=== PATIENT | female | born 1960 | race Caucasian/White ===

== ENCOUNTER 2019-12-06 12:59 | Outpatient (CLI) | payer OTHER, SELFPAY ==
--- NOTE | ~2019-12-06 | US_ITS ---
EXAMINATION:US venous doppler LE RT INDICATION:Right lower extremity edema TECHNIQUE: Multiple grayscale, color flow and Doppler images of the right lower extremity deep venous systems were obtained and reviewed. COMPARISON:05/27/2016 FINDINGS: The common femoral, superficial femoral and popliteal veins demonstrate normal respiratory variation, augmentation and compressibility. Color flow is also seen within the posterior tibial, pe roneal, greater saphenous and profunda veins. IMPRESSION: 1: No lower extremity deep venous thrombosis. Reviewed, dictated and finalized at location B. ER MEAT
--- NOTE | ~2019-12-06 | XR_ITS ---
XR chest 2V 12/06/2019 13:22 Indication: Shortness of breath Procedure: 2 view chest Comparison: Comparison to multiple prior studies sequentially, with oldest reviewed study dated 05/20. Findings: Heart size normal. Left basilar atelectasis. No focal air space disease, pulmonary edema, p leural effusion or suspected pneumothorax. Impression: 1: Left basilar atelectasis. Reviewed, dictated and finalized at location B. EL SUPERVISOR Impression: 1: Left basilar atelectasis.
== END 2019-12-06 13:00 | disposition home or self-care (01) ==
PROVIDERS: PCP Family Medicine; Visit Provider Physician Assistant
DX: M79.661 Pain in right lower leg (principal); R60.9 Edema, unspecified; R06.02 Shortness of breath
CPT/HCPCS: 71046; 93971

== ENCOUNTER 2019-12-16 14:01 | Outpatient (CLI) | payer OTHER, SELFPAY ==
--- NOTE | 2019-12-16 14:04 | ECHO_ITS ---
Patient Info Name: Gwen Barraza Age: 59 years : 1960 Gender: Female Ht: 69 in Wt: 200 lbs BSA: 2.12 m2 HR: 110 bpm BP: 162 / 100 mmHg Technical Quality: Fair Exam Date: 12/16/2019 2:22 PM Exam Location: [facility] Pulmonary Patient Status: Outpatient Admit Date: 12/16/2019 Staff Ordering Physician: Portia Camarillo PA-C Architect Manager: Marga Cortes RDCS Attending Provider: Kanwal Quinones MD Referring Physician: Marquise HERRERA; Exam Type: CA echo doppler color flow Study Info Indications R06.02 - Shortness of breath Complete two-dimensional, color flow and Doppler transthoracic echocardiogram is performed. Summary 1. Left ventricular chamber dimension is normal. 2. Left ventricular systolic function is normal, estimated at 60-65%. 3. The left ventricular diastolic function is grade I diastolic dysfunction. 4. E/e' 7 is not elevated. 5. No pulmonary hypertension, estimated pulmonary arterial systolic pressure is 36 mmHg. Left Ventricle E/e' 7 is not elevated. Left ventricular chamber dimension is normal. Left ventricular systolic function is normal, estimated at 60-65%. The left ventricular diastolic function is grade I diastolic dysfunction. Right Ventricle Right ventricular chamber dimension is normal. Right ventricular systolic function is normal. Left Atria Left atrial chamber dimension is normal. Right Atria Right atrial chamber dimension is normal. Aortic Valve The aortic valve is trileaflet. There is no aortic valve stenosis. There is no aortic valve regurgitation. Pulmonic Valve There is no pulmonic regurgitation. Mitral Valve There is no mitral valve stenosis. There is no mitral valve regurgitation. Tricuspid Valve There is no tricuspid valve regurgitation. No pulmonary hypertension, estimated pulmonary arterial systolic pressure is 36 mmHg. Pericardium/Pleural There is no pericardial effusion. Inferior Vena Cava Normal inferior vena cava with >50% collapse upon inspiration consistent with normal right atrial pressure, 5 mmHg. Aorta The aortic root size at the sinus of Valsalva is normal. Left Ventricular Outflow Tract Name Value Normal LVOT 2D LVOT Diameter 2.0 cm LVOT Doppler LVOT Peak Gradient 6 mmHg LVOT Mean Gradient 3 mmHg LVOT VTI 22 cm LVOT VTI/AV VTI Ratio 0.8 LVOT Stroke Volume 67 ml LVOT CO 6.9 l/min LVOT CI 3.2 l/min/m2 Pulmonic Valve Name Value Normal RVOT Doppler RVOT Peak Gradient 3 mmHg PV Doppler PV Peak Gradient 5 mmHg Mitral Valve
== END 2019-12-16 14:02 | disposition home or self-care (01) ==
PROVIDERS: PCP Family Medicine; Visit Provider Family Medicine
DX: R06.02 Shortness of breath (principal)
CPT/HCPCS: 93306

== ENCOUNTER 2022-06-22 16:17 | Outpatient (CLI) | payer OTHER, SELFPAY ==
--- NOTE | ~2022-06-22 | XR_ITS ---
XR ankle LT min 3V 06/22/2022 16:42 Indication: Left ankle pain Procedure: 4 views left ankle Comparison: 07/17/2017 Findings: There is anatomic alignment. There is a degenerative calcaneal enthesophyte at the plantar surface. Ankle mortise intact. No abnormality of the talar dome. No focal soft tissue abnormality. No fracture or traumatic malalignment. There is mild degenerative change of the midfoot. Impression: 1: No acute bone or joint abnormality. Reviewed, dictated and finalized at location A. Impression: 1: No acute bone or joint abnormality.
== END 2022-06-22 16:18 | disposition home or self-care (01) ==
LOC: ANHIMG 16:19
PROVIDERS: PCP Family Medicine; Visit Provider Physician Assistant Medical
DX: S99.912A Unspecified injury of left ankle, initial encounter (principal); X58.XXXA Exposure to other specified factors, initial encounter
CPT/HCPCS: 73610

== ENCOUNTER 2022-12-25 15:19 | Observation (INO) | payer OTHER, SELFPAY ==
[2022-12-25] VITALS (9 sets, daily range): BP systolic 156–204; BP diastolic 85–112; PULSE 103–137; RESP 12–24; TEMP 36.6–36.8; O2SAT 97–100; BMI 38.6
--- NOTE | ~2022-12-25 | NM_ITS ---
EXAMINATION: NM john stress w perfusion DATE: 12/26/2022 12:32 INDICATION: Shortness of breath. TECHNIQUE: Rest images were obtained following intravenous administration of 9.7 mCi Tc99m tetrofosmi n (Myoview). The patient was infused intravenously with Lexiscan (regadenoson). Then, 30.8 mCi Tc99m tetrofosmin (Myoview) was administered intravenously, and stress images were obtained. Data was recon structed into short axis and horizontal and vertical long axis SPECT images. Gated SPECT images were also obtained. COMPARISON: Chest CT 12/25/2022 FINDINGS: There is no definite reversible or fixed perfusion abnormality to suggest ischemia or infar ction. There is no segmental wall motion abnormality. Left ventricular ejection fraction measures > 70%. IMPRESSION: 1. No definite ischemia or infarct. 2. Normal left ventricular ejection fraction measuring >70%. Reviewed, dictated and finalized at location A.
--- NOTE | ~2022-12-25 | CT_ITS ---
Clinical Indication: Dyspnea, cough CT Scan of the Chest with Contrast: Technique: Contiguous sections were acquired throughout the chest after intravenous administration of 100 cc of Omnipaque 350. Dose reduction technique was used on this scan by utilizing automated expos ure control and iterative reconstruction technique. The dose-length product (DLP) was 831.24 mGy-cm. COMPARISON: 05/27/2016 Findings: There is no evidence of any significant mediastinal, hilar or axillary lymphadenopathy. No definite l arge central pulmonary embolus seen, but timing of the contrast bolus is suboptimal to evaluate for p ulmonary emboli. There is no evidence of aortic dissection or aneurysm. There is no evidence of pleural or pericardial effusion. The lungs are clear. No pulmonary nodules or infiltrates are noted. Images through the upper abdomen reveal no abnormalities. Impression: No large central pulmonary embolus evident, but timing of the contrast bolus is suboptimal to evaluat e for pulmonary emboli. Consider VQ scan for further evaluation as indicated. Clear lungs. Reviewed, dictated and finalized at location . Impression: No large central pulmonary embolus evident, but timing of the contrast bolus is suboptimal to evaluate for pulmonary emboli. Consider VQ scan for further eval uation as indicated. Clear lungs.
--- NOTE | ~2022-12-25 | XR_ITS ---
XR chest 2V DATE: 12/25/2022 15:47 INDICATION: Shortness of breath and cough today TECHNIQUE: PA and lateral views COMPARISON: 12/06/2019 PA and lateral chest FINDINGS: Normal heart size. Chronic mild discoid scarring, left lateral lung base. No pulmonary infiltrate or consolidation, pleu ral effusion or pulmonary vascular congestion or pneumothorax is detected. Status post cholecystectomy. IMPRESSION: No active cardiopulmonary disease or significant change since 12/06/2019 Reviewed, dictated and finalized at location A. IMPRESSION: No active cardiopulmonary disease or significant change since 020
--- NOTE | 2022-12-25 15:26 | ECG_ITS ---
Measurements Intervals [place] Rate: 121 P: 64 TN: 173 QRS: 44 QRSD: 71 T: 61 QT: 292 QTc: 415 Interpretive Statements SINUS TACHYCARDIA FREQUENT ATRIAL PREMATURE COMPLEXES NONSPECIFIC ST & T-WAVE ABNORMALITY- ANTERIOR LEADS BASELINE ARTIFACT- I, II, III, AVR, AVL, V3 ABNORMAL ECG NO PREVIOUS ECG AVAILABLE FOR COMPARISON Electronically Signed On 12-25-2022 16:01:57 CDT by Baldo Vasquez D.O.
[2022-12-25 15:41] LABS: Basophils Percent Auto 0.5 % (0.2-1.2); Eosinophils Absolute Auto 0.1 K/mm3 (0-0.3); Eosinophils Percent Auto 1.3 % (0-4.4); Hemoglobin 15.2 g/dL (12.0-15.0); Immature Granulocyte Absolute 0.03 K/mm3 (0.00-0.031); Immature Granulocyte Percent A 0.4 % (0-0.5); Lymphocytes Absolute Auto 2.77 K/mm3 (0.9-3.2); Lymphocytes Percent Auto 33.1 % (18.3-44.2); Mean Corpuscular HGB Conc 32.3 g/dl (32-36); Mean Corpuscular Hemoglobin 29.3 pg (26-34); Mean Corpuscular Volume 90.7 fl (80-100); Mean Platelet Volume 9.1 fl (7.4-10.4); Monocytes Absolute Auto 0.8 K/mm3 (0.1-0.6); Monocytes Percent Auto 9.4 % (2.6-8.5); Neutrophils Absolute Auto 4.6 K/mm3 (1.3-6.7); Neutrophils Percent Auto 55.3 % (45.5-73.1); Platelet Count Result 212 k/mm3 (150-375); Red Blood Count 5.18 M/mm3 (4.2-5.4); White Blood Count 8.4 K/mm3 (4.5-10.0)
[2022-12-25 15:50] LABS: Alanine Aminotransferase 35 U/L (6-35); Albumin Level 4.7 g/dL (3.5-5.1); Alkaline Phosphatase 99 U/L (38-126); Anion Gap 8 mmol/L (8-16); Aspartate Amino Transferase 30 U/L (14-36); Bilirubin,Total 0.6 mg/dL (0.2-1.3); Blood Urea Nitrogen 13 mg/dL (7-17); Calcium 9.2 mg/dL (8.4-10.2); Carbon Dioxide 25 mmol/L (22-30); Chloride 108 mmol/L (98-107); Estimated CRCL calculation 48 ml/min; Estimated Glomerular Filt Rate 50; Glucose 118 mg/dL (65-110); Potassium 3.8 mmol/L (3.4-5.0); Sodium 141 mmol/L (137-145)
--- NOTE | 2022-12-25 19:42 | ED.SOB ---
HPI - SOB/Dyspnea General Chief Complaint: Shortness of Breath/Dyspnea Stated Complaint: SOB, HTN Time Seen by Provider: 12/25/22 19:10 History of Present Illness HPI Narrative: This is a 62-year-old female with past medical history of hypothyroidism, hypertension, who presents emergency department complaining of progressive dyspnea. She states today while walking her dog she became short of breath, feeling like I ran a marathon. She denies chest pain, swelling, fevers or chills and has not had symptoms like this before. Related Data Home Medications Medication Instructions Recorded Confirmed aspirin 81 mg tablet,delayed 81 mg PO DAILY 10/20/19 10/17/22 release (Adult Low Dose Aspirin) Allergies Allergy/AdvReac Type Severity Reaction Status Date / Time morphine Allergy Unknown Rash Verified 12/25/22 15:20 verapamil Allergy Unknown Unknown Verified 12/25/22 15:20 lorazepam AdvReac Unknown Agitated Verified 12/25/22 15:20 Review of Systems Review of Systems: CONSTITUTIONAL: Denies fever, chills, or sweats. CARDIOVASCULAR: Denies chest pain, palpitations, or edema. RESPIRATORY: Dyspnea on exertion denies cough GASTROINTESTINAL: Denies abdominal pain, nausea, vomiting, or diarrhea. GENITOURINARY: Denies dysuria or hematuria. SKIN: Denies rash or itching. MUSCULOSKELETAL: Denies back pain, joint pain, or myalgia. NEUROLOGIC: Denies headache, numbness, dizziness, or weakness. PSYCHIATRIC: Denies anxiety or depression. PMFSH Past Medical History Medical History Essential hypertension Hypothyroidism, unspecified Left ankle injury Mixed hyperlipidemia Surgical History Surgical History H/O total hysterectomy Family History Family History Other Diabetes mellitus Family history of coronary artery disease Hypertension Social History Social History Smoking status: Never smoker Second hand tobacco smoke exposure: No Alcohol intake: never Substance use: never Substance use type: does not use Living arrangements: with family Gender identity (if verbalized by the patient): Female Exam Narrative: GENERAL: Well-developed, well-nourished, and in no acute distress. HEAD: Normocephalic, atraumatic. EYES: PERRLA and EOMI. ENT: Nares clear, no rhinorrhea or epistaxis. Mucous membranes moist. Oropharynx without tonsillar hypertrophy exudate or other lesions. NECK: Supple. No adenopathy or masses. No JVD CHEST: Clear to auscultation. No respiratory distress. No wheezes rales or rhonchi HEART: Tachycardic with regular rhythm. No murmur heard. Normal peripheral pulses. ABDOMEN: Soft, nontender, nondistended, normal active bowel sounds. EXTREMITIES: Normal range of motion. No edema. SKIN: Warm, dry, no rash. NEURO: No focal deficits. Alert and oriented x3. PSYCH: Normal mood and affect. Course Course Emergency Course: 21:50 - CBC demonstrates slightly elevated hemoglobin at 15. Chemistries demonstrate slightly elevated creatinine 1.1. BNP not elevated and initial troponin negative. Chest x-ray does not demonstrate acute cardiopulmonary process. Given however the patient's past medical history and her concerning symptoms, I discussed the patient with hospitalist, Dr. Kincaid who accepts admission for cardiac evaluation. Dr. Kincaid recommends CT PE study with which I agree. Discussed findings and recommendations with the patient who voices understanding and is comfortable with the plan. All questions answered to her satisfaction. Vital Signs Vital signs: Vital Signs Temperature 98.2 F 12/25/22 15:22 Pulse Rate 130 H 12/25/22 15:22 Respiratory Rate 18 12/25/22 15:22 Blood Pressure 204/112 H 12/25/22 15:22 Pulse Oximetry 98 12/25/22 15:22 Temperature
[2022-12-25 21:34] LABS: NT Pro B Type Natriuretic Pept 84 pg/mL (19.9-100); Troponin I < 0.012 ng/mL (0.000-0.034)
[2022-12-25] MEDS: SODIUM CHLORIDE 0.9% IV 500 ML 999 ML IV CONT (21:48)
--- NOTE | 2022-12-25 21:50 | PM.IMHP ---
H&P: HPI History of Present Illness Date/Time: 12/25/22 21:50 Chief Complaint: Shortness of breath Narrative: This is a 62-year-old female with past medical history significant for COPD, hypertension, hypothyroidism, obesity. Patient presents to the emergency room due to shortness of breath mainly at exertion, decreased stamina, fatigue. Patient denies any chest pain, palpitations, leg swelling, PND, orthopnea, no fevers, no rigors, no chills, no cough, no lightheadedness no syncope no near-syncope. Today patient had episode of dyspnea just walking few steps and has been falling asleep when sitting. Preliminary workup has been essentially nonrevealing. However patient was found to be hypertensive upon arrival to emergency room with systolic blood pressures in the 190s. Patient is been admitted for further evaluation management and treatment. A chest x-ray was reported as: FINDINGS: Normal heart size. Chronic mild discoid scarring, left lateral lung base. No pulmonary infiltrate or consolidation, pleural effusion or pulmonary vascular congestion or pneumothorax is detected. Status post cholecystectomy.? IMPRESSION: No active cardiopulmonary disease or significant change since 12/06/2019? Review of Systems Review of Systems: Shortness of breath, decreased stamina, fatigue, Constitutional: Constitutional: Denies chills, Reports fatigue, Denies fever(s), Reports lethargy, Denies malaise, Denies night sweats, Denies poor appetite and Denies weakness Eyes: Eyes: Denies change in vision Cardiovascular: Cardiovascular: Denies chest pain, Denies chest pain with activity, Denies syncope, Denies irregular heart rhythm, Denies leg edema, Denies lightheadedness, Denies radiating jaw, neck or arm pain, Denies palpitations, Reports dyspnea on exertion and Denies paroxysmal nocturnal dyspnea Respiratory: Respiratory: Denies chest congestion, Denies cough and Denies pain on inspiration Gastrointestinal: Gastrointestinal: Denies abdominal pain, Denies dyspepsia, Denies heartburn, Denies diarrhea, Denies nausea and Denies vomiting Genitourinary: Genitourinary: Reports no additional female genitourinary complaints and Reports as per HPI Musculoskeletal: Musculoskeletal: Denies back pain, Denies joint swelling and Denies muscle weakness Integumentary/Breasts: Skin/Breast: Denies rash Neurologic: Denies focal weakness and Denies Sensory deficit (Neuro) Psychiatric: Psychiatric: Reports no additional psychiatric complaints and Reports as per HPI Endocrine: Endocrine: Denies cold intolerance, Denies flushing, Denies heat intolerance, Denies polyphagia, Denies polydipsia and Denies palpitations Hematologic/Lymphatic: Hematologic/Lymphatic: Reports no additional hematologic/lymphatic complaints and Reports as per HPI Allergic/Immunologic: Allergic/Immunologic: Reports no additional allergic/immunologic complaints and Reports as per HPI PMFSH Past Medical History Medical History Essential hypertension Hypothyroidism, unspecified Left ankle injury Mixed hyperlipidemia Surgical History Surgical History H/O total hysterectomy Family History Family History Other Diabetes mellitus Family history of coronary artery disease Hypertension Social History Social History Smoking status: Never smoker Second hand tobacco smoke exposure: No Alcohol intake: never Substance use: never Substance use type: does not use Lack of Transportation: No Lack of Food: Never True Current Housing: I Have Housing Concerned About Future Housing: No Difficulty Paying Gas/Electric Bills: No Difficulty Paying for Meds: No Currently Unemployed: No Education: High School Diploma/GED Difficulty w/ Childcare or Family C
[2022-12-25] MEDS: ALBUTEROL SULFATE NEB 2.5 MG/3 ML INH INHALATION (21:52)
[2022-12-25 22:09] LABS: D Dimer 0.94 ug/mL (<0.48)
[2022-12-25 22:14] LABS: Troponin I < 0.012 ng/mL (0.000-0.034)
--- NOTE | 2022-12-25 23:37 | ADMGEN ---
This patient, Gwen Barraza, was admitted to [facility] Surg Room 325-02. Patient/family oriented to hospital policies and general routines including ID bracelet, bed and alarms, visiting hours, pain management, procedures, bathroom and other care routines, personal items, smoking policy, room service/diet, and visiting hours. Information on how to activate the Rapid Response Team has been discussed. Patient/Family are encouraged to report perceived risks to care and to ask questions if they do not understand what they are told or what they should do.
[2022-12-26] VITALS (10 sets, daily range): BP systolic 146–178; BP diastolic 65–90; PULSE 73–108; RESP 16; TEMP 35.3–36.2; O2SAT 95–100
--- NOTE | 2022-12-26 | ECHO_ITS ---
Patient Info Name: Gwen Barraza Age: 62 years : 1960 Gender: Female Ht: 69 in Wt: 261 lbs BSA: 2.45 m2 HR: 98 bpm BP: 146 / 76 mmHg Heart Rhythm: Sinus Rhythm Technical Quality: Fair Exam Date: 12/26/2022 3:44 PM Exam Location: [facility] Pulmonary Patient Status: Outpatient Admit Date: 12/25/2022 Staff Ordering Physician: German Kincaid MD Hedge Fund Accountant: Dasia Anthony RDCS Attending Provider: eGrman Kincaid MD Referring Physician: Codi MORAES; Exam Type: CA echo doppler color flow Study Info Indications - SOB, DECREASED STAMINA Complete two-dimensional, color flow and Doppler transthoracic echocardiogram is performed with contrast to opacify the left ventricle and to improve the deliniation of the left ventricle endocardial borders. Contrast/Agitated Saline Contrast/Ag. Saline: Definity Amount: 3.00 ml Administered By: Dasia Anthony RDCS Existing IV Access: Yes IV Access Condition: patent with no signs of infiltration Summary 1. Definity contrast administered improved wall motion interpretation. 2. Left ventricular chamber dimension is normal. 3. Left ventricular systolic function is normal, estimated at 60-65%. 4. The left ventricular diastolic function is grade I diastolic dysfunction. 5. E/e' 11 is mildly elevated. 6. No pulmonary hypertension, estimated pulmonary arterial systolic pressure is 14 mmHg. Left Ventricle E/e' 11 is mildly elevated. Definity contrast administered improved wall motion interpretation. Left ventricular chamber dimension is normal. Left ventricular systolic function is normal, estimated at 60-65%. The left ventricular diastolic function is grade I diastolic dysfunction. Right Ventricle Right ventricular systolic function is normal and with normal TAPSE 2.0 cm. Right ventricular chamber dimension is normal. Left Atria Left atrial chamber dimension is normal. Right Atria Right atrial chamber dimension is normal. Aortic Valve The aortic valve is trileaflet. There is no aortic valve stenosis. There is no aortic valve regurgitation. Pulmonic Valve There is trace pulmonic regurgitation. Mitral Valve There is no mitral valve stenosis. There is no mitral valve regurgitation. Tricuspid Valve There is no tricuspid valve regurgitation. No pulmonary hypertension, estimated pulmonary arterial systolic pressure is 14 mmHg. Pericardium/Pleural There is no pericardial effusion. Inferior Vena Cava Normal inferior vena cava with >50% collapse upon inspiration consistent with normal right atrial pressure, 5 mmHg. Aorta The aortic root size at the sinus of Valsalva is normal. Left Ventricular Outflow Tract Name Value Normal LVOT 2D LVOT Diameter 1.9 cm LVOT Doppler LVOT Peak Gradient 3 mmHg LVOT Mean Gradient 2 mmHg LVOT VTI 17 cm LVOT VTI/AV VTI Ratio 0.7 LVOT Stroke Volume 49 ml LVOT CO
[2022-12-26] MEDS: MELATONIN 5 MG TABLET 10 MG PO (01:34)
--- NOTE | 2022-12-26 01:41 | EST_ITS ---
Patient Info Name: Gwen Barraza Age: 62 years : 1960 Gender: Female Ht: 69 in Wt: 261 lbs BSA: 2.45 m2 HR: 91 bpm BP: 144 / 86 mmHg Heart Rhythm: Sinus Rhythm Exam Date: 12/26/2022 11:28 AM Exam Location: [facility] Stress Patient Status: Inpatient Admit Date: 12/25/2022 Staff Ordering Physician: German Kincaid MD Attending Provider: German Kincaid MD Exercise Technologist: Hemalatha Maldonado CT Exercise Physician: Baldo Vasquez DO Exam Type: CA stress john w NM Study Info Indications R06.02 - Shortness of breath R53.83 - Other fatigue A regadenoson stress test was performed. Summary 1. 1. Negative lexiscan stress test for ischemic ST changes by ECG criteria. 2. 2. Baseline hypertension. 3. 3. Nuclear scan to follow and will be reported separately. Please correlate with it. 4. 4. Patient informed of the above results. Protocol: Lexiscan Stress ECG Details Stage: REST Duration (min): 2 min : 56 sec HR (bpm): 89 SBP (mmHg): 144 DBP (mmHg): 86 Stage: REST Duration (min): 15 min : 49 sec HR (bpm): 87 SBP (mmHg): 144 DBP (mmHg): 86 Stage: STAGE 1 Duration (min): 1 min : 0 sec HR (bpm): 101 SBP (mmHg): 146 DBP (mmHg): 88 Stage: RECOVERY Duration (min): 1 min : 0 sec HR (bpm): 105 SBP (mmHg): 146 DBP (mmHg): 88 Stage: RECOVERY Duration (min): 2 min : 0 sec HR (bpm): 103 SBP (mmHg): 146 DBP (mmHg): 88 Stage: RECOVERY Duration (min): 3 min : 0 sec HR (bpm): 98 SBP (mmHg): 161 DBP (mmHg): 93 Stage: RECOVERY Duration (min): 4 min : 0 sec HR (bpm): 96 SBP (mmHg): 161 DBP (mmHg): 93 Stage: RECOVERY Duration (min): 4 min : 55 sec HR (bpm): 96 SBP (mmHg): 166 DBP (mmHg): 94 Rest HR: 87 bpm Peak HR: 106 bpm Rest Sys BP: 144 mmHg Peak Sys BP: 166 mmHg Max Pred HR: 156 bpm % Max Pred HR: 68 % Target HR: 133 bpm Max RPP: 17,596 bpm*mmHg Termination Reason: Completed protocol Cardiac Symptoms: Nausea Total Time: 1 min : 0 sec Rest Jeong BP: 86 mmHg Peak Jeong BP: 94 mmHg Total Dose: 0.4 mg Resting ECG Sinus rhythm. Stress ECG No ST changes. Arrhythmias None. Report Signatures
[2022-12-26] MEDS: hydrALAZINE HCL 20 MG/ML VIAL 10 MG IV PUSH (05:27)
[2022-12-26 06:26] LABS: Basophils Percent Auto 0.3 % (0.2-1.2); Eosinophils Absolute Auto 0.1 K/mm3 (0-0.3); Eosinophils Percent Auto 1.3 % (0-4.4); Hematocrit 44.8 % (37.0-47.0); Hemoglobin 14.6 g/dL (12.0-15.0); Immature Granulocyte Absolute 0.01 K/mm3 (0.00-0.031); Immature Granulocyte Percent A 0.1 % (0-0.5); Lymphocytes Absolute Auto 2.95 K/mm3 (0.9-3.2); Lymphocytes Percent Auto 33.6 % (18.3-44.2); Mean Corpuscular HGB Conc 32.6 g/dl (32-36); Mean Corpuscular Hemoglobin 29.1 pg (26-34); Mean Corpuscular Volume 89.2 fl (80-100); Mean Platelet Volume 9.1 fl (7.4-10.4); Monocytes Absolute Auto 0.7 K/mm3 (0.1-0.6); Monocytes Percent Auto 8.3 % (2.6-8.5); Neutrophils Absolute Auto 4.9 K/mm3 (1.3-6.7); Neutrophils Percent Auto 56.4 % (45.5-73.1); Platelet Count Result 207 k/mm3 (150-375); Red Blood Count 5.02 M/mm3 (4.2-5.4); Red Cell Distribution Width 14.1 % (11.5-14.5); White Blood Count 8.8 K/mm3 (4.5-10.0)
[2022-12-26 06:35] LABS: Anion Gap 8 mmol/L (8-16); Blood Urea Nitrogen 16 mg/dL (7-17); Calcium 8.9 mg/dL (8.4-10.2); Carbon Dioxide 24 mmol/L (22-30); Chloride 109 mmol/L (98-107); Estimated CRCL calculation 85 ml/min; Estimated Glomerular Filt Rate > 60; Glucose 125 mg/dL (65-110); Potassium 3.7 mmol/L (3.4-5.0); Sodium 141 mmol/L (137-145)
--- NOTE | 2022-12-26 08:12 | PM.IMPN ---
Progress Note: A&P Assessment and Plan (1) Uncontrolled hypertension: Code(s): I10 - Essential (primary) hypertension Status: Acute Assessment and Plan: Blood pressure reviewed 12/26 140s to 170s over 60s to 90s (2) Dyspnea on exertion: Code(s): R06.00 - Dyspnea, unspecified Status: Acute Assessment and Plan: Stress test ordered Troponin negative x2 Monitor telemetry ECG shows sinus tachycardia, nonspecific abnormalities in the T wave (3) Obesity (BMI 30-39.9): Code(s): E66.9 - Obesity, unspecified Status: Acute Assessment and Plan: Lifestyle and diet modifications (4) Mixed hyperlipidemia: Code(s): E78.2 - Mixed hyperlipidemia Status: Acute Assessment and Plan: Check a fasting lipid panel 12/27 Plan DVT prophylaxis with SCDs GI prophylaxis not indicated Code status full code Subjective Date/time seen: 12/26/22 08:12 Interval history: 62-year-old female with past medical history of COPD, hypertension, hypothyroidism presenting with shortness of breath. No overnight events noted. No chest pain or shortness of breath. No nausea, vomiting or diarrhea. No fevers or chills. Review of Systems Review of Systems: 12 point review of systems was assessed and was negative except as noted in the HPI Exam Narrative: General: No acute distress, alert and oriented per baseline HEENT: Atraumatic, normocephalic, mucous membranes moist CV: Regular rate and rhythm, S1, S2 Lungs: Clear to auscultation bilaterally, no rales or crackles noted, no wheezes, good air entry Abdomen: Soft, nontender, nondistended Extremities: Normal to inspection Skin: No rashes noted, no lesions or wounds seen Psych: Euthymic, normal affect Objective Data Vital Signs Vital Signs: Vital Signs - 24 hr 12/25/22 15:22 12/25/22 18:01 12/25/22 19:48 Temperature 98.2 F 97.8 F Pulse Rate 130 H 112 H Respiratory Rate 18 20 Blood Pressure 204/112 H 156/91 H Pulse Oximetry 98 97 98 Oxygen Delivery Room Air 12/25/22 20:53 12/25/22 21:50 12/25/22 21:54 Temperature Pulse Rate 103 H 108 H 115 H Respiratory Rate 17 24 H 14 Blood Pressure 172/90 H 184/105 H Pulse Oximetry 98 99 Oxygen Delivery 12/25/22 21:59 12/25/22 22:35 12/25/22 23:09 Temperature Pulse Rate 117 H 137 H 114 H Respiratory Rate 12 24 H 20 Blood Pressure 195/104 H 161/85 H Pulse Oximetry 100 97 Oxygen Delivery 12/26/22 00:00 12/26/22 04:00 12/26/22 05:09 Temperature 96.8 F L 97.1 F L Pulse Rate 105 H 103 H 98 Respiratory Rate 16 16 Blood Pressure 178/90 H 151/65 H Pulse Oximetry 100 100 Oxygen Delivery 12/26/22 06:00 Temperature Pulse Rate 99 Respiratory Rate Blood Pressure 146/76 H Pulse Oximetry Oxygen Delivery Intake/Output Intake/Output: Intake & Output 12/23/22 12/24/22 12/25/22 12/26/22 23:59 23:59 23:59 23:59 Intake Total 0 Balance 0 Meds/Results Medications: Active Medications Generic Name Dose Route Start Last Admin Trade Name Freq PRN Reason Stop Dose Admin Albuterol 2.5 mg 12/26/22 01:11 Albuterol Sulfate Neb 2.5 Mg/3 Ml Inh INHALATION Q4-6H PRN shortness of breath or wheezing Aspirin 81 mg 12/26/22 09:00 Aspirin 81 Mg Enteric Tablet PO DAILY [facility] Hydralazine HCl 10 mg 12/26/22 01:13 12/26/22 05:27 Hydralazine Hcl 20 Mg/Ml Vial IV PUSH 10 mg Q8H PRN Administration Blood Pressure - High [id number] Melatonin 10 mg 12/26/22 01:20 12/26/22 01:34 Melatonin 5 Mg Tablet PO 10 mg HS EVARISTO Administration Metoprolol Succinate 50 mg 12/26/22 09:00 Metoprolol Succinate Ext Rel 50 Mg Tabcr PO DAILY EVARISTO Perflutren Lipid Microsphere 0 ml 12/26/22 01:12 Perflutren Lipid Microspheres 1.5 Ml Vial Diluted To 10 Ml Total Volume IV PUSH 12/28/22 01:12 ONCE PRN adequate visualization Protocol Radiology Res
[2022-12-26] MEDS: ASPIRIN 81 MG ENTERIC TABLET PO (09:53)
[2022-12-26] MEDS: METOPROLOL SUCCINATE EXT REL 50 MG TABCR PO (09:53)
--- NOTE | 2022-12-26 16:15 | PM.DS ---
DS: Admitting Diagnosis Discharge Date 12/26/22 Admitting Diagnosis sob DS: Discharge Diagnosis Discharge Diagnosis (1) Uncontrolled hypertension: Code(s): I10 - Essential (primary) hypertension Status: Acute Assessment and Plan: Blood pressure reviewed 12/26 140s to 170s over 60s to 90s (2) Dyspnea on exertion: Code(s): R06.00 - Dyspnea, unspecified Status: Acute Assessment and Plan: Stress test ordered Troponin negative x2 Monitor telemetry ECG shows sinus tachycardia, nonspecific abnormalities in the T wave (3) Obesity (BMI 30-39.9): Code(s): E66.9 - Obesity, unspecified Status: Acute Assessment and Plan: Lifestyle and diet modifications (4) Mixed hyperlipidemia: Code(s): E78.2 - Mixed hyperlipidemia Status: Acute Assessment and Plan: Check a fasting lipid panel 12/27 Plan DVT prophylaxis with SCDs GI prophylaxis not indicated Code status full code DS: Summary Hospital Course Hospital Course: 62-year-old female with past medical history significant for COPD, hypertension, hypothyroidism presenting to the emergency room with shortness of breath. She denies any associated symptoms and was admitted to rule out cardiac etiology. CT PE negative for PE, stress test negative for ischemia. All symptoms resolved. She was discharged in stable condition with close outpatient follow-up by family practice and Cardiology. Symptoms were thought to be secondary to stress she has recently had multiple social stressors, additionally her blood pressure and heart rate have been elevated giving her some discomfort. These were brought down, all symptoms resolved. She is to monitor her blood pressure and heart rate home and return of any symptoms come back. Time Spent with Patient Time attestation: Total time spent providing and/or coordinating discharge services: Exam Narrative: General: No acute distress, alert and oriented per baseline HEENT: Atraumatic, normocephalic, mucous membranes moist CV: Regular rate and rhythm, S1, S2 Lungs: Clear to auscultation bilaterally, no rales or crackles noted, no wheezes, good air entry Abdomen: Soft, nontender, nondistended Extremities: Normal to inspection Skin: No rashes noted, no lesions or wounds seen Psych: Euthymic, normal affect DS: Data Data Completed and Pending Labs on day of discharge: Labs from last 24 hours 12/26/22 12/26/22 12/25/22 06:11 06:11 21:47 WBC 8.8 RBC 5.02 Hgb 14.6 Hct 44.8 MCV 89.2 MCH 29.1 MCHC 32.6 RDW 14.1 Plt Count 207 MPV 9.1 Immature Gran % (Auto) 0.1 Neut % (Auto) 56.4 Lymph % (Auto) 33.6 [place] % (Auto) 8.3 Eos % (Auto) 1.3 Baso % (Auto) 0.3 Lymph # (Auto) 2.95 [place] # (Auto) 0.7 H Eos # (Auto) 0.1 Baso # (Auto) 0.0 Abs Immat Gran (auto) 0.01 Absolute Neuts (auto) 4.9 Absolute Nucleated RBC 0.0 Nucleated RBC % 0.0 D-Dimer Sodium 141 Potassium 3.7 Chloride 109 H Carbon Dioxide 24 Anion Gap 8 BUN 16 Creatinine 0.80 Estim Creat Clear Calc 85 Estimated GFR > 60 Glucose 125 H Calcium 8.9 Troponin I < 0.012 NT-Pro-B Natriuret Pep 12/25/22 12/25/22 21:47 15:30 WBC RBC Hgb Hct MCV MCH MCHC RDW Plt Count MPV Immature Gran % (Auto) Neut % (Auto) Lymph % (Auto) [place] % (Auto) Eos % (Auto) Baso % (Auto) Lymph # (Auto) [place] # (Auto) Eos # (Auto) Baso # (Auto) Abs Immat Gran (auto) Absolute Neuts (auto) Absolute Nucleated RBC Nucleated RBC % D-Dimer 0.94 H Sodium Potassium Chloride Carbon Dioxide Anion Gap BUN Creatinine Estim Creat Clear Calc Estimated GFR Glucose Calcium Troponin I < 0.012 NT-Pro-B Natriuret Pep 84 Discharge Plan Discharge Attending physician on discharge: Rachelle Saucedo Discharging
[2022-12-26] MEDS: PERFLUTREN LIPID MICROSPHERES 1.5 ML VIAL DILUTED TO 10 ML TOTAL VOLUME IV PUSH (16:16)
--- NOTE | 2022-12-26 16:17 | IVDEFINITY ---
Prior to administration of IV Definity the patient was educated on the risks and benefits of the imaging enhancing agent including potential adverse side effects. The patient verbalized understanding. Allergies were verified. No exclusion criteria were identified and at least one of the following inclusion criteria were met: 1) physician request, 2) patient technically difficult to image (per the [place] [employer] guidelines of two or more segments not discernable within the apical view), or 3) questionable left ventricular function. ?
== END 2022-12-26 17:15 | disposition home or self-care (01) ==
LOC: ANHED 21:54 → ANH3MEDSUR 23:16
PROVIDERS: Emergency Medicine; Admitting Provider Internal Medicine; Emergency Provider Preventive Medicine Aerospace Medicine; PCP Family Medicine; Visit Provider Student in an Organized Health Care Education/Training Program
DX: R06.09 Other forms of dyspnea (principal); I11.9 Hypertensive heart disease without heart failure; E66.9 Obesity, unspecified; Z68.38 Body mass index [BMI] 38.0-38.9, adult; E78.2 Mixed hyperlipidemia; R00.0 Tachycardia, unspecified; E03.9 Hypothyroidism, unspecified; R94.31 Abnormal electrocardiogram [ECG] [EKG]; J44.9 Chronic obstructive pulmonary disease, unspecified; D64.9 Anemia, unspecified; R53.83 Other fatigue; Z90.49 Acquired absence of other specified parts of digestive tract; Z79.82 Long term (current) use of aspirin; Z79.51 Long term (current) use of inhaled steroids; Z79.899 Other long term (current) drug therapy; Z82.49 Family history of ischemic heart disease and other diseases of the circulatory system
CPT/HCPCS: 36415; 71046; 71275; 78452; 80048; 80053; 83880; 84484; 85025; 85380; 93005; 93017; 93306; 94640; 96374; 96375; 99285; A9270; A9502; G0378; J0360; J7040; Q9957; Q9967

== ENCOUNTER 2023-11-23 12:56 | Outpatient (CLI) | payer OTHER, SELFPAY ==
--- NOTE | ~2023-11-23 | XR_ITS ---
EXAMINATION: XR wrist LT 2V INDICATION: Left wrist pain TECHNIQUE: Two views of the left wrist are obtained. COMPARISON: 02/10/2014 FINDINGS: No fracture, dislocation, or subluxation. The bones, soft tissues, and joint spaces are nor mal. IMPRESSION: 1. No acute osseous abnormality. Reviewed, dictated and finalized at location L. CREW SUPERVISOR
== END 2023-11-23 12:57 | disposition home or self-care (01) ==
LOC: ANHIMG 12:57
PROVIDERS: PCP Family Medicine; Visit Provider Physician Assistant
DX: M25.532 Pain in left wrist (principal)
CPT/HCPCS: 73100

== ENCOUNTER 2024-02-27 16:09 | Outpatient (CLI) | payer OTHER, SELFPAY ==
--- NOTE | ~2024-02-27 | XR_ITS ---
EXAMINATION: XR chest 2V 02/27/2024 16:21 INDICATION: Cough PROCEDURE: 2 view chest COMPARISON: Comparison to multiple prior studies sequentially, with oldest reviewed study dated 04/2018. FINDINGS: The lungs are clear. The cardiomediastinal silhouette is within normal limits. There are no pleural effusions. There is no pneumothorax suspected. IMPRESSION: 1: NO ACUTE CARDIOPULMONARY DISEASE. Reviewed, dictated and finalized at location B.
[2024-02-27 17:06] LABS: Basophils Percent Auto 0.5 % (0.2-1.2); Eosinophils Absolute Auto 0.2 K/mm3 (0-0.3); Eosinophils Percent Auto 2.6 % (0-4.4); Hematocrit 46.1 % (37.0-47.0); Hemoglobin 14.9 g/dL (12.0-15.0); Immature Granulocyte Absolute 0.02 K/mm3 (0.00-0.031); Immature Granulocyte Percent A 0.3 % (0-0.5); Lymphocytes Percent Auto 27.8 % (18.3-44.2); Mean Corpuscular HGB Conc 32.3 g/dl (32-36); Mean Corpuscular Hemoglobin 29.5 pg (26-34); Mean Corpuscular Volume 91.3 fl (80-100); Mean Platelet Volume 9.4 fl (7.4-10.4); Monocytes Absolute Auto 0.8 K/mm3 (0.1-0.6); Monocytes Percent Auto 11.7 % (2.6-8.5); Neutrophils Absolute Auto 3.7 K/mm3 (1.3-6.7); Neutrophils Percent Auto 57.1 % (45.5-73.1); Platelet Count Result 197 k/mm3 (150-375); Red Blood Count 5.05 M/mm3 (4.2-5.4); White Blood Count 6.5 K/mm3 (4.5-10.0)
[2024-02-27 17:18] LABS: Alanine Aminotransferase 46 U/L (6-35); Albumin Level 4.7 g/dL (3.5-5.1); Alkaline Phosphatase 102 U/L (38-126); Anion Gap 9 mmol/L (4-12); Aspartate Amino Transferase 33 U/L (14-36); Bilirubin,Total 0.6 mg/dL (0.2-1.3); Blood Urea Nitrogen 9 mg/dL (7-17); Carbon Dioxide 22 mmol/L (22-30); Chloride 109 mmol/L (98-107); Estimated Glomerular Filt Rate > 60; Glucose 112 mg/dL (65-110); Potassium 3.8 mmol/L (3.4-5.0); Sodium 140 mmol/L (137-145)
[2024-02-27 17:26] LABS: NT Pro B Type Natriuretic Pept 137 pg/mL (19.9-100)
== END 2024-02-27 16:10 | disposition home or self-care (01) ==
LOC: ANHIMG 16:10
PROVIDERS: PCP Family Medicine; Visit Provider Student in an Organized Health Care Education/Training Program
DX: R06.00 Dyspnea, unspecified (principal); I50.9 Heart failure, unspecified; R60.9 Edema, unspecified; R05.9 Cough, unspecified; R60.0 Localized edema
CPT/HCPCS: 36415; 71046; 80053; 83880; 85025

== ENCOUNTER 2024-05-29 08:43 | Outpatient (CLI) | payer OTHER, SELFPAY ==
--- NOTE | 2024-05-29 09:07 | ECG_ITS ---
Test Date: 2024-05-29 09:15:47 Measurements Intervals [place] Rate: 89 P: 55 NE: 195 QRS: 47 QRSD: 69 T: 67 QT: 343 QTc: 419 Interpretive Statements SINUS RHYTHM NORMAL ELECTROCARDIOGRAM No previous ECG available for comparison Electronically Signed On 05-30-2024 13:04:16 CDT by Aris Fung M.D.
[2024-05-29 10:22] LABS: Alanine Aminotransferase 61 U/L (6-35); Albumin Level 4.5 g/dL (3.5-5.1); Alkaline Phosphatase 86 U/L (38-126); Anion Gap 14 mmol/L (4-12); Aspartate Amino Transferase 45 U/L (14-36); Bilirubin,Total 0.5 mg/dL (0.2-1.3); Blood Urea Nitrogen 17 mg/dL (7-17); Carbon Dioxide 21 mmol/L (22-30); Chloride 107 mmol/L (98-107); Cholesterol 224 mg/dL (0-200); Estimated Glomerular Filt Rate > 60; Glucose 99 mg/dL (65-110); HDL Direct 41 mg/dL; Sodium 142 mmol/L (137-145); Triglycerides 251 mg/dL (<150)
[2024-05-29 10:33] LABS: LDL Cholesterol Direct 118 mg/dL
[2024-05-29 10:39] LABS: Hemoglobin A1C 5.7 % (<5.7)
== END 2024-05-29 08:44 | disposition home or self-care (01) ==
LOC: ANHCARD 08:45
PROVIDERS: PCP Family Medicine; Visit Provider Physician Assistant Medical
DX: R07.9 Chest pain, unspecified (principal); E78.2 Mixed hyperlipidemia; R73.03 Prediabetes; E55.9 Vitamin D deficiency, unspecified; I10 Essential (primary) hypertension; R74.8 Abnormal levels of other serum enzymes; R60.0 Localized edema
CPT/HCPCS: 36415; 80053; 80061; 83036; 93005

== ENCOUNTER 2024-05-30 08:55 | Outpatient (CLI) | payer OTHER, SELFPAY ==
[2024-05-30 10:31] LABS: Alanine Aminotransferase 54 U/L (6-35); Albumin Level 4.5 g/dL (3.5-5.1); Alkaline Phosphatase 85 U/L (38-126); Aspartate Amino Transferase 39 U/L (14-36); Bilirubin,Total 0.5 mg/dL (0.2-1.3)
[2024-05-30 11:18] LABS: Hepatitis B Surface Antigen Negative (Negative)
[2024-05-30 11:23] LABS: HAV RESULT Negative (Negative); Hepatitis B Core IgM Result Negative (Negative)
[2024-05-30 11:35] LABS: Hepatitis C Virus Antibody Negative (Negative)
== END 2024-05-30 08:56 | disposition home or self-care (01) ==
PROVIDERS: PCP Family Medicine; Visit Provider Physician Assistant Medical
DX: R74.8 Abnormal levels of other serum enzymes (principal)
CPT/HCPCS: 36415; 80074; 80076

== ENCOUNTER 2024-12-06 09:26 | Outpatient (CLI) | payer OTHER, SELFPAY ==
--- NOTE | ~2024-12-06 | US_ITS ---
EXAMINATION: US venous doppler [facility] DATE: 12/06/2024 09:54 INDICATION: Left lower limb pain and swelling. TECHNIQUE: Grayscale ultrasound images without and with compression and Doppler ultrasound images of the left lower extremity veins were obtained. COMPARISON: Ultrasound 06/16/2015. FINDINGS: The visualized portions of left common femoral vein, profunda (deep) femoral vein, femoral vein, popl iteal vein, peroneal veins, posterior tibial veins, and greater saphenous vein outflow are patent. IMPRESSION: 1. No deep venous thrombosis. Reviewed, dictated and finalized at location A. TAIN WAITRESS/WAITER
--- OUTSIDE RECORDS SUMMARY | 2024-12-06 09:58 | XMS_ITS | Referral Summary ---
Author Organization [facility] [address] [facility] [address] Address [address] [place] [address] Care Team Providers Care Construction Supervisor/Carpenter Name Role Phone Kanwal Quinones MD Primary Care Provider [phone] Allergies Active Allergy Reactions Criticality Noted Date Comments Lorazepam Morphine Verapamil Medications ProAir HFA 90 mcg/actuation inhaler 01/25/2023 Active albuterol 2.5 mg /3 mL (0.083 %) nebulizer solution 01/05/2023 Active metoprolol XL (TOPROL-XL) 25 mg extended release tablet Take 1 tablet (25 mg total) by mouth 2 (two) times a day 12/25/2022 Active aspirin 81 mg chewable tablet Take 1 tablet (81 mg total) by mouth daily Active Active Problems Problem Noted Date Diagnosed Date Paroxysmal SVT (supraventricular tachycardia) Social History Tobacco Use Types Packs/Day Years Used Date Smoking Tobacco: Never Smokeless Tobacco: Never Alcohol Use Standard Drinks/Week Comments No 0 (1 standard drink = 0.6 oz pur e alcohol) Comments Unknown Sex and Gender Information Value Date Recorded Sex Assigned at Not on file 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 Gender Identity Not on file Sexual Orientation Not on file Last Filed Vital Signs Vital Sign Reading Time Taken Comments Blood Pressure 124/80 02/28/2023 2:52 PM CDT Pulse 82 02/28/2023 2:52 PM CDT Temperature - - Respiratory Rate - - Oxygen Saturation 95% 02/28/2023 2:52 PM CDT Inhaled Oxygen Concentration - - Weight 118.8 kg (262 lb) 02/28/2023 2:52 PM CDT Height 175.3 cm (5' 9 ) 02/28/2023 2:52 PM CDT Body Mass Index 38.69 02/28/2023 2:52 PM CDT Plan of Treatment Not [place] [address] [employer] [facility] HMO/PPO Address: [facility] [id number] [place] [id number] [place] [address] Care Teams Construction Supervisor/Carpenter Relationship Specialty Start Date End Date Kanwal Quinones MD PCP - General 06/06/13
--- OUTSIDE RECORDS SUMMARY | 2024-12-06 09:58 | XMS_ITS | Clinical Summary ---
Author Organization [facility] [address] [facility] [address] [place] [address] Care Team Providers Care Environmental Compliance Inspector Name Role Phone Kanwal Quinones MD Primary Care Provider [phone] Allergies Active Allergy Reactions Criticality Noted Date [...] Date Diagnosed Date Paroxysmal SVT (supraventricular tachycardia) Surgical History Surgery Date Site/Laterality Comments CHOLECYSTECTOMY Cholecystectomy HYSTERECTOMY Hysterectomy Medical History Medical History Date Comments Hx Other Medical DVT Family History Medical History Relation Name Comments Heart attack Brother 2 Myocardial Infa rction; Cause of : Myocardial Infarction Relation Name Status Comments Brother 1 (Age 33) Brother 2 Social History Tobacco Use Types Packs/Day Years Used Date Smoking Tobacco: Never Smokeless Tobacco: Never Alcohol Use Standard Drinks/Week Comments No 0 (1 standard drink = 0.6 oz pur e alcohol) Comments Unknown Sex and Gender Information Value Date Recorded Sex Assigned at Not on file 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 Gender Identity Not on file Sexual Orientation Not on file Obstetrics History Last Filed Vital Signs Vital Sign Reading [...] 02/28/2023 2:52 PM CDT Plan of Treatment Health Maintenance Due Date Last Done Comments Breast Cancer Screening-Mammogram 1958 Colon Cancer Screening-Colonoscopy 1958 Depression Screening 1958 Fall Risk Assessment 1958 Hepatitis C Screening 1958 Osteoporosis Screening-Bone Density Scan 1958 DTaP/Tdap/Td Vaccine (1 - Tdap) 1969 Hepatitis B Screening 1976 Pneumococcal vaccine 65+ (1 of 1 - PCV) 2008 Well Visit 65+ 2023 Influenza Vaccine (#1) 2024 Zoster Vaccine Completed 03/01/2019, 12/24/2018 Insurance [facility] [place] [address] Care Teams Environmental Compliance Inspector Relationship Specialty Start Date End Date Kanwal Quinones MD PCP - General 06/06/13
== END 2024-12-06 09:27 | disposition home or self-care (01) ==
LOC: ANHIMG 09:27
PROVIDERS: PCP Family Medicine; Visit Provider Family Medicine
DX: M79.89 Other specified soft tissue disorders (principal)
CPT/HCPCS: 93971